=== PATIENT | female | born 1985 | race Caucasian/White ===

== ENCOUNTER 2018-11-05 21:42 | Emergency (ER) | payer OTHER ==
[~2018-11-05] VITALS: Ht 167.6 cm; Wt 65.8 kg
== END 2018-11-05 22:43 | disposition home or self-care (01) ==
LOC: EMR PED 21:42 → ER 21:46
DX: R06.02 Shortness of breath (principal); F06.4 Anxiety disorder due to known physiological condition

== ENCOUNTER 2019-12-20 10:47 | Emergency (ER) | payer OTHER ==
[~2019-12-20] VITALS: Ht 167.6 cm; Wt 63.5 kg
== END 2019-12-20 13:33 | disposition home or self-care (01) ==
LOC: ER 10:47
DX: R06.02 Shortness of breath (principal); Z03.818 Encounter for observation for suspected exposure to other biological agents ruled out

== ENCOUNTER 2021-11-05 13:17 | Inpatient (IN) | payer OTHER ==
[~2021-11-05] VITALS: Ht 167.6 cm; Wt 81.6 kg
[2021-11-05] MEDS ORDERED: CHILDREN'S ASPI81 MG PO (15:43)
[2021-11-05] MEDS ORDERED: PRENATAL TABLE1 EAC1 PO (15:43)
[2021-11-05] MEDS ORDERED: VITAMIN D325 MC2 PO (15:44)
== END 2021-11-09 17:03 | disposition home or self-care (01) | DRG 831 ==
LOC: LDR 13:17
PROVIDERS: ADMIT Specialist; ATTEND Specialist
PROC: 4A1HXCZ Monitoring of Products of Conception, Cardiac Rate, External Approach (ICD-10-PCS; principal; 2021-11-05)
PROC: 8E0ZXY6 Isolation (ICD-10-PCS; 2021-11-05)
PROC: 4A033R1 Measurement of Arterial Saturation, Peripheral, Percutaneous Approach (ICD-10-PCS; 2021-11-05)
DX: O98.512 Other viral diseases complicating pregnancy, second trimester (principal); U07.1 COVID-19; Z3A.24 24 weeks gestation of pregnancy

== ENCOUNTER 2022-02-25 07:03 | Inpatient (IN) | payer OTHER ==
[~2022-02-25] VITALS: Ht 167.6 cm; Wt 90.7 kg
[~2022-02-25 07:03] MED LIST: CHILDREN'S ASPI81 MG PO; PRENATAL TABLE1 EAC1 PO; VITAMIN D325 MC2 PO
[2022-02-25] MEDS ORDERED: IRON236 MG (10:31)
[2022-02-28] MEDS ORDERED: SURFAK240 M1 PO (17:34)
[2022-02-28] MEDS ORDERED: IBU800 MG PO (17:34)
[2022-02-28] MEDS ORDERED: SIMETHICONE125 M1 PO (17:35)
== END 2022-02-28 17:39 | disposition home or self-care (01) | DRG 768 ==
LOC: LDR 07:03 → OB/GYN 02-26 08:52
PROVIDERS: ADMIT Specialist; ATTEND Specialist
PROC: 0KQM0ZZ Repair Perineum Muscle, Open Approach (ICD-10-PCS; 2022-02-25)
PROC: 4A1HXCZ Monitoring of Products of Conception, Cardiac Rate, External Approach (ICD-10-PCS; 2022-02-25)
PROC: 10E0XZZ Delivery of Products of Conception, External Approach (ICD-10-PCS; principal; 2022-02-25 23:00)
PROC: 0UT90ZZ Resection of Uterus, Open Approach (ICD-10-PCS; 2022-02-26)
PROC: 30233N1 Transfusion of Nonautologous Red Blood Cells into Peripheral Vein, Percutaneous Approach (ICD-10-PCS; 2022-02-26)
DX: O70.1 Second degree perineal laceration during delivery (principal); Z37.0 Single live birth; O72.1 Other immediate postpartum hemorrhage; Z3A.39 39 weeks gestation of pregnancy; Z20.822 Contact with and (suspected) exposure to COVID-19